=== PATIENT | male | born 1960 | race Caucasian/White ===

== ENCOUNTER 2017-03-10 12:07 | Emergency (ER) | payer OTHER ==
[2017-03-10 12:30] VITALS: BP 142/105
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
[2017-03-10] MEDS ORDERED: Acetaminophen/oxyCODONE 325-5 MG Tab PO ONE (13:46)
--- NOTE | 2017-03-10 14:16 | CT ---
CT thoracic spine Technique: Multiple axial sections were obtained through the thoracic spine. Comparison: Previous lumbar spine plain film study performed earlier on the same day dated 03/10/17 at time 12:38 PM Findings: Moderate compression deformity is noted at T12. This is believed to be acute. There is no extension of any fracture line into the posterior elements or posterior vertebral line. No abnormal subluxation is seen. Other vertebral body heights are maintained. Prominent lateral osteophytes are noted at L1-2 on the right side which is incidental. No additional fracture is seen. No abnormal subluxation is identified. Mild scattered degenerative change is seen within the apophyseal joints. Impression: 1. Moderate anterior wedging of T12 which appears to be acute. No fracture line is seen within the posterior elements or involving the posterior vertebral line. No abnormal subluxation is seen. 2. Mild degenerative change as noted above. 3. No additional fracture is appreciated. Diagnostic code #3
--- NOTE | 2017-03-10 17:24 | CR ---
Lumbar spine: AP, lateral and cone-down lateral views centered to the lumbosacral junction were obtained. Moderate anterior wedging is seen of T12. This is most likely acute. Minimal anterior wedging is noted of L1 which is less specific for being acute versus chronic. Posterior disc space narrowing is seen at L1-L2. Other disc spaces are maintained. Other vertebral body heights are maintained. Scattered endplate osteophytes are seen. Minimal retrolisthesis is noted of L1 on L2. Endplate osteophyte most prominent laterally at L1-L2 on the right side. Impression: 1. Moderate anterior wedging of T12 which is likely acute. 2. Minimal anterior wedging of L1 which could be acute or chronic as well as developmental. 3. Mild degenerative change as described above. Diagnostic code #3
== END 2017-03-10 13:00 | disposition home or self-care (01) ==
LOC: JD.ED 12:07
DX: S22.080A Wedge compression fracture of T11-T12 vertebra, initial encounter for closed fracture (principal); I10 Essential (primary) hypertension; E03.9 Hypothyroidism, unspecified; F17.210 Nicotine dependence, cigarettes, uncomplicated; Z88.0 Allergy status to penicillin; Z79.899 Other long term (current) drug therapy; V59.88XA Occupant (driver) (passenger) of pick-up truck or van injured in other specified transport accidents, initial encounter; Y92.411 Interstate highway as the place of occurrence of the external cause
CPT/HCPCS: 72100; 72128; 99284; A9270; 99283